=== PATIENT | male | born 1935 | race Hispanic/Latino ===

== ENCOUNTER 2017-07-14 10:50 | Outpatient (CLI) | payer MEDICARE ==
[2017-07-14 12:02] LABS: Blood Urea Nitrogen 15 mg/dL (9-20)
[2017-07-14] MEDS ORDERED: NACL ONE (12:39)
--- NOTE | 2017-07-14 13:52 | Cat Scan Report ---
CT ANGIOGRAM ABDOMEN AND PELVIS HISTORY: Abdominal aortic aneurysm without rupture. TECHNIQUE: Helical CT following IV contrast. Sagittal and coronal reformatted images. MIP images. NASCET criteria was utilized. FINDINGS: There are mild scattered calcified plaques throughout the abdominal aorta. The abdominal aorta is mildly ectatic. A 2.5 cm infrarenal AAA is identified. No evidence for stenosis or dissection. The celiac axis, SMA and RIC are patent with less than 30% stenosis. Bilateral single renal arteries are patent. Heart size is normal. No pericardial effusion. The liver, spleen, adrenal glands, pancreas and left kidney are unremarkable. There are 3 or 4 simple cysts in the right kidney measuring up to 5 cm. Multiple tiny gallstones are identified within the fundus of the gallbladder. No biliary dilatation or inflammation is identified. The bowel loops are normal caliber. There are scattered diverticula in the colon but no acute inflammatory changes. Bilateral common iliac venous and left external iliac venous stents are in place. IMPRESSION: 2.8 cm infrarenal AAA as described.
== END 2017-07-14 10:51 | disposition home or self-care (01) ==
LOC: CT 10:50
PROVIDERS: ATTEND Radiology Diagnostic Radiology
DX: I71.4 Abdominal aortic aneurysm, without rupture (principal); N28.1 Cyst of kidney, acquired; K80.20 Calculus of gallbladder without cholecystitis without obstruction; K57.30 Diverticulosis of large intestine without perforation or abscess without bleeding
CPT/HCPCS: 36415; 74174; 82565; 84520; Q9967